=== PATIENT | female | born 1935 | race Asian ===

== ENCOUNTER 2017-01-04 09:27 | Observation (INO) ==
[2017-01-04] MEDS ORDERED: ONDANSETRON 4 MG/2 ML VIAL IV ONE (10:05)
--- NOTE | 2017-01-04 10:05 | Emergency Department Note ---
Lower Extremity Injury HPI - General Chief Complaint: Extremity Injury, Lower Stated Complaint: Right knee and left wrist pain Time Seen by Provider: 01/04/17 09:59 Source: patient Mode of arrival: wheelchair Limitations: physical limitation - History of Present Illness HPI Narrative: This patient fell and injured her left wrist yesterday breaking and also injured her right knee. X-ray of the right knee was negative but she continued to have severe pain in the knee. The pain medication that she had including tramadol is making her sick during the night so she has not been taking it. She is complaining of a lot of pain. - Related Data Home Medications Medication Instructions Recorded Confirmed ascorbic acid (vitamin C) 500 mg 500 mg PO QDAY tab 11/03/14 01/04/17 tablet calcium carbonate 600 mg (1,500 2 tab PO QDAY tab 11/03/14 01/04/17 mg)-vitamin D3 200 unit tablet levothyroxine 25 mcg capsule 50 mcg PO QDAY cap 11/03/14 01/04/17 metformin 500 mg tablet 500 mg PO BID tab 11/03/14 01/04/17 multivitamin tablet 1 tab PO QDAY tab 11/03/14 01/04/17 omeprazole 20 mg capsule,delayed 20 mg PO QDAY cap 11/03/14 01/04/17 release simvastatin 10 mg tablet 10 mg PO QPM tab 11/03/14 01/04/17 cyanocobalamin (vit B-12) 1,000 1,000 mcg PO QDAY 01/01/15 01/04/17 mcg tablet hydroxychloroquine 200 mg tablet 200 mg PO QDAY tab 01/01/15 01/04/17 ketoconazole 2 % topical cream 1 applic TOPICAL .COMPLEX PRN 01/01/15 01/04/17 ondansetron HCl 4 mg tablet 4 mg PO Q6H PRN 01/01/15 01/04/17 triamcinolone acetonide 0.025 % 1 applic TOPICAL .COMPLEX PRN 01/01/15 01/04/17 topical cream cholestyramine (with sugar) 4 gram 4 g PO .COMPLEX 04/15/16 01/04/17 oral powder Previous Rx's Medication Instructions Recorded trospium 20 mg tablet 20 mg PO BID #180 tab 09/02/16 traMADol [Ultram] 50 mg PO Q6HP PRN #20 tab 01/03/17 Allergies Allergy/AdvReac Type Severity Reaction Status Date / Time codeine Allergy Severe Hives & Verified 01/03/17 11:08 [From Tylenol-Codeine #3] Rash hydrocodone [From [place]] Allergy Unknown Unknown Verified 01/03/17 11:08 acetaminophen AdvReac Mild Nausea Verified 01/04/17 09:33 Review of Systems Review of Systems: This patient was a little diaphoretic and so they moved her over to the ER side going EKG which looked normal. All systems ED: reviewed and negative except as stated. Past Medical History - Past Medical History [facility] Narrative: Medical History Wrist fracture (Acute) Vasomotor instability (Chronic) Urinary urgency (Chronic) Hx of urinary tract infection (Chronic) Urinary frequency (Chronic) Pelvic pain (Chronic) Joint pain (Chronic) Gastroesophageal reflux (Chronic) Fatigue (Chronic) Abdominal bruit (Chronic) Dysuria (Chronic) Dysphagia, unspecified (Chronic) Diabetes mellitus, type II (Chronic) Sin's palsy (Chronic) Back pain (Chronic) Atrophic vaginitis (Chronic) Arthritis (Chronic) Abdominal pain (Chronic) codeine [From Tylenol-Codeine #3] Allergy (Severe, Verified 01/03/17 11:08) Hives & Rash hydrocodone [From [place]] Allergy (Unknown, Verified 01/03/17 11:08) Unknown acetaminophen Adverse Reaction (Mild, Verified 01/04/17 09:33) Nausea 01/04/17 10:02 CT knee RT wo con Stat morphine 2 mg IV Q5MIN PRN Temp Pulse Resp BP Pulse Ox 98.5 F 95 H 18 104/65 98 01/04/17 09:28 01/04/17 09:28 01/04/17 09:28 01/04/17 09:28 01/04/17 09:28 Past Surgical History History of hysterectomy (Chronic) History of colonoscopy (Chronic) History of breast surgery (Chronic) Family History Unknown No pertinent family history Medical history: Reports: diabetes, hyperlipidemia, hypertension, other (right iliac artery stenosis) Surgical history ED: Reports: non-contributory Psychiatric history: Reports: no psych history 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 Tenderness is diffuse. - General Limitations: physical limitation General appearance: alert - Head Head exam: atraumatic, normocephalic - Eye Eye exam: Present: normal appearance - ENT ENT exam: normal exam - Neck Neck exam: Present: normal inspection - Chest Chest inspection: Present: normal inspection - Respiratory Respiratory exam: Present: normal lung sounds bilaterally - Cardiovascular Cardiovascular exam: Present: regular rate, normal rhythm, normal heart sounds - Abdominal Exam Abdominal exam: Present: soft. Absent: distention, tenderness - Neurological Exam Neurological exam: Present: alert - Psychiatric Psychiatric exam: Present: normal affect, normal mood - Skin Skin exam: Present: warm, dry, intact Course Vital Signs Temperature 98.5 F 01/04/17 09:28 Pulse Rate 95 H 01/04/17 09:28 Respiratory Rate 18 01/04/17 09:28 Blood Pressure 104/65 01/04/17 09:28 Pulse Oximetry (%) 98 01/04/17 09:28 Temperature 98.5 F 01/04/17 09:28 Pulse Rate 74 01/04/17 11:01 Respiratory Rate 14 01/04/17 11:01 Blood Pressure 149/68 01/04/17 11:01 Pulse Oximetry (%) 99 01/04/17 11:01 Extremity Injury, Lower - MDM Narrative Medical decision making narrative: Right knee shows a posterior avulsion fracture of the tibia where the posterior cruciate ligament attaches. Patient lives alone and is not really manage at home alone with a fractured left wrist and right knee. Discussed the case with Dr. Joyce who will review the films. The left wrist may need to be surgically repaired. We will admit to the hospitalist for pain control - Lab Data Lab results reviewed: Yes I reviewed the patient's lab results. Result diagrams: 01/04/17 10:27 01/04/17 10:27 Lab Results 01/04/17 01/04/17 Range/Units 10:27 10:27 WBC 7.0 (4.5-11.0) K/mcL RBC 4.23 (4.00-5.20) M/mcL Hgb 13.1 (12.0-15.0) g/dL Hct 38.9 (36.0-48.0) % MCV 91.9 (80.0-100.0) fL MCH 31.0 (26.0-34.0) pg MCHC 33.7 (31.0-36.0) g/dL RDW 15.1 H (11.5-14.5) % Plt Count 165 (140-440) K/mcL MPV 8.6 (7.4-10.4) fL Gran % 85.2 H (38.0-78.0) % Lymph % (Auto) 8.9 L (15.5-49.0) % [place] % (Auto) 5.4 (1.0-12.0) % Eos % (Auto) 0.3 (0.0-7.0) % Baso % (Auto) 0.2 (0.0-2.0) % Gran # 6.0 (1.8-8.0) K/mcL Lymph # (Auto) 0.6 L (1.5-4.8) K/mcL [place] # (Auto) 0.4 (0.1-0.9) K/mcL Eos # (Auto) 0 (0.0-0.7) K/mcL Baso # (Auto) 0 (0.0-0.3) K/mcL Sodium 131 L (133-145) mmol/L Potassium 3.7 (3.3-5.1) mmol/L Chloride 92 L (96-108) mmol/L Carbon Dioxide 23 (22-30) mmol/L Anion Gap 16.0 (8-16) BUN 16 (8-23) mg/dl Creatinine 0.7 (0.6-1.1) mg/dl GFR Calculation 81 Glucose 132 H (70-105) mg/dL Calcium 9.7 (8.6-10.4) mg/dl Total Bilirubin 0.6 (0.0-1.0) mg/dL AST 32 (0-37) U/l ALT 21 (0-40) U/l Alkaline Phosphatase 48 (39-117) U/L Total Protein 6.7 (5.9-8.4) gm/dL Albumin 4.3 (3.2-5.2) gm/dL Globulin 2.4 (2.2-3.7) gm/dL Albumin/Globulin Ratio 1.8 (1.0-2.3) - Radiology Data Radiology results reviewed: Yes I reviewed the patient's radiology results. Disposition Pt seen by LAND LAW EXAMINER/PA only: No Clinical Impression: Tibia fracture, Wrist fracture Disposition: Xfer As Outpt/Obs ([facility]) Condition: Good Referrals: Beverley Lux ARNP [Primary Care Provider] - Time of Disposition: 11:46
[2017-01-04] MEDS ORDERED: 0.9 % SODIUM CHLORIDE 1,000 ML IV ONE (10:41)
[2017-01-04 11:06] LABS: Basophils # (Auto) 0 K/mcL (0.0-0.3); Basophils % (Auto) 0.2 % (0.0-2.0); Eosinophils # (Auto) 0 K/mcL (0.0-0.7); Eosinophils % (Auto) 0.3 % (0.0-7.0); Granulocytes % (Auto) 85.2 % (38.0-78.0); Lymphocytes # (Auto) 0.6 K/mcL (1.5-4.8); Lymphocytes % (Auto) 8.9 % (15.5-49.0); Mean Cell Volume 91.9 fL (80.0-100.0); Mean Corpuscular HGB Conc 33.7 g/dL (31.0-36.0); Monocytes # (Auto) 0.4 K/mcL (0.1-0.9); Monocytes % (Auto) 5.4 % (1.0-12.0); Platelet Count 165 K/mcL (140-440); RBC 4.23 M/mcL (4.00-5.20); Red Cell Distribution Width 15.1 % (11.5-14.5)
[2017-01-04 11:33] LABS: ALT/SGPT 21 U/l (0-40); Albumin 4.3 gm/dL (3.2-5.2); Albumin/Globulin Ratio 1.8 (1.0-2.3); Alkaline Phosphatase 48 U/L (39-117); Blood Urea Nitrogen 16 mg/dl (8-23)
[2017-01-04 12:49] LABS: Appearance,Urine CLEAR; Bacteria,Urine 0 /hpf (0); Bilirubin,Urine NEG (NEG); Color,Urine STRAW; Glucose,Urine (UA) NEGATIVE (NEG); Leukocyte Esterase,Urine NEG /uL (NEG); Mucus,Urine FEW /hpf (0); Nitrate,Urine NEG (NEG); Protein,Urine NEG (NEG); Specific Gravity,Urine 1.009 (1.000-1.035); Urine Blood NEG mg/dL (<0.03); Urine RBC 0 /hpf (0-1); Urine Squamous Epithelial Cell 0 /hpf (0-4); Urine WBC < 1 /hpf (0-4); Urobilinogen,Urine NEG (NEG)
--- NOTE | 2017-01-04 13:51 | Internal Med History&Physical ---
Medical - H&P: HPI Patient information: Note initiated : 01/04/17 at 1:49 pm Patient: Rizwan Rueda 81 y/o F admitted on for Right knee ulcer avulsion fracture and left wrist fracture. History of present illness: Ms. Rueda is a 81 year old [place] female, who lives alone. She has been struggling with chronic pain for a while, although the source of her pain is not entirely clear. It sounds like she has chronic bilateral knee pain, and then also hip claudication. She has apparently been seeing Dr. Christy for the claudication. She also has fairly diffuse osteoarthritis. She says she has been falling more frequently lately. Yesterday, she had a curb near the sidewalk and tripped and fell. She was seen in our emergency room yesterday, and diagnosed with a comminuted left distal radius fracture. She was placed in a splint and given oral pain medications, and sent home. Today she returned to the emergency room saying that severe nausea was preventing her from holding the pain meds down. Her pain was uncontrolled. She also is having a lot of pain bearing weight on the right knee. CT scan of the knee did show a posterior a avulsion fracture of the right tibia. The patient required IV morphine to get her pain even moderately controlled in the emergency room, as well as IV antiemetics. She is now admitted for further pain control, and for further evaluation of her fractures. There is a bit of a language barrier, as French is not her first language. Fortunately, her son and [id number] are in the room supplement the history. The patient does have a history also of chronic intermittent nausea, of uncertain etiology. The family is a bit frustrated, as they would like to go to her doctor's appointments with her, so they know what is happening. However, the patient tends to forget to call them when she has appointments. The patient seems to indicate that she was in her normal state of health until yesterday. She denies any recent fevers or chills, headaches or dizziness, new eye or ear symptoms, sore throat or cough chest pain or palpitations. However, she indicated she occasionally has substernal discomfort at night, but it goes away with rubbing. She denies any heart history. She denies abdominal pain, diarrhea. She does have nausea for which she takes Zofran intermittently. She believes she rarely has vomiting. She denies dysuria here, but there are several notes from Dr. Corrales which discuss chronic urinary urgency, frequency, atrophic vaginitis. Screening EKG done in the emergency room was mildly normal, with mild ST elevation noted in leads II 3 and F. We did obtain an EKG from [facility], that also has very slight ST elevation inferiorly, so this is likely a chronic change. Medical History Abdominal bruit (Chronic) Abdominal pain (Chronic) Arthritis (Chronic) Atrophic vaginitis (Chronic) Back pain (Chronic) Sin's palsy (Chronic) Diabetes mellitus, type II (Chronic) Dysphagia, unspecified (Chronic) FEW TIMES A YEAR Dysuria (Chronic) Fatigue (Chronic) Gastroesophageal reflux (Chronic) Hx of urinary tract infection (Chronic) Joint pain (Chronic) Pelvic pain (Chronic) Urinary frequency (Chronic) Urinary urgency (Chronic) Vasomotor instability (Chronic) Records from [facility], from Dr. Christy, indicate the patient has had obturator steroid injections. She apparently also has weakness and numbness of both lower extremities. COPD noted on chest x-ray Surgical History History of breast surgery (Chronic) FAILED BREAST IMPLANTS WITH SCARRING History of colonoscopy (Chronic) History of hysterectomy (Chronic) Medication List ascorbic acid (vitamin C) 500 mg PO QDAY Calcium carbonate plus D, 500, 2 daily cyanocobalamin (vit B-12) 1,000 mcg PO QDAY hydroxychloroquine 200 mg PO QDAY ketoconazole 2% 1 applic TOPICAL PRN levothyroxine 25 mcg PO QDAY metformin 500 mg PO BID multivitamin tablet 1 tab PO QDAY omeprazole 20 mg PO QDAY ondansetron HCl 4 mg PO Q6H PRN simvastatin 10 mg PO QPM triamcinolone acetonide 0.025% 1 applic TOPICAL PRN trospium 20 mg PO BID MiraLAX 17 g p.o. nightly Allergies/Adverse Reactions Codeine [From Tylenol-Codeine #3] Allergy (Severe, Verified 04/15/16 13:20) Hives & Rash codeine [From Tylenol-Codeine #3] Allergy (Severe, Verified 04/15/16 13:20) Hives & Rash hydrocodone [From [place]] Allergy (Unknown, Verified 04/15/16 13:31) Unknown Tylenol? Reaction unknown Family History Mother had significant osteoarthritis. Both parents and 2 brothers all had tuberculosis, while living in [place]. Social History The patient lives alone. Her son and [id number] live here in town. She smoked from the age of 16 until age 74, approximately 1-1/2 packs per day. She does not use alcohol or drugs. Medical - H&P: Meds Home Medications Medication Instructions Recorded Confirmed Type ascorbic acid (vitamin C) 500 mg 500 mg PO 1200 tab 11/03/14 01/04/17 History tablet levothyroxine 25 mcg capsule 50 mcg PO QDAY cap 11/03/14 01/04/17 History metformin 500 mg tablet 500 mg PO BID tab 11/03/14 01/04/17 History omeprazole 20 mg capsule,delayed 20 mg PO BID cap 11/03/14 01/04/17 History release simvastatin 10 mg tablet 10 mg PO QPM tab 11/03/14 01/04/17 History cyanocobalamin (vit B-12) 1,000 1,000 mcg PO 1200 01/01/15 01/04/17 History mcg tablet hydroxychloroquine 200 mg tablet 200 mg PO QDAY tab 01/01/15 01/04/17 History ondansetron HCl 4 mg tablet 4 mg PO Q6H PRN 01/01/15 01/04/17 History triamcinolone acetonide 0.025 % 1 applic TOPICAL PRN PRN 01/01/15 01/04/17 History topical cream trospium 20 mg tablet 20 mg PO BID #180 tab 09/02/16 01/04/17 Rx Calcium Carbonate/Vitamin D3 1,000 mg PO 1200 01/04/17 01/04/17 History [Calcium 500+D Tablet Chew] Folic Acid/Multivit-Min/Lutein 1 tab PO 1200 01/04/17 01/04/17 History [Adult Multivitamin Gummies] Polyethylene Glycol 3350 [Miralax] 17 gm PO HS 01/04/17 01/04/17 History Allergies Allergy/AdvReac Type Severity Reaction Status Date / Time codeine Allergy Severe Hives & Verified 01/03/17 11:08 [From Tylenol-Codeine #3] Rash hydrocodone [From [place]] Allergy Intermediate Hives Verified 01/04/17 15:19 acetaminophen AdvReac Mild Nausea Verified 01/04/17 09:33 Medical - H&P: Exam - Constitutional Vitals: Temp Pulse Resp BP Pulse Ox 98.5 F 80 14 115/58 100 01/04/17 09:28 01/04/17 11:31 01/04/17 13:01 01/04/17 13:01 01/04/17 11:31 On exam, she is an elderly female, in no significant distress. She has a fairly heavy accent, so there is a bit of a language barrier. Her family helps to interpret which she is trying to say. Head: Normocephalic, atraumatic. Eyes: PERRLA, EOMI, anicteric. Ears: TMs and canals are clear. Pharynx: Pharynx is clear. She has a full upper plate. About half her teeth remain in the lower jaw, and are in fair condition. Neck: Is supple, without obvious lymphadenopathy, JVD, thyromegaly, bruits. Cardiac: Shows regular rate and rhythm, with normal S1 and S2, without murmurs, rubs, gallops. Lungs: Are clear to auscultation, without rales, rhonchi, wheezes. Abdomen: Soft and nontender, without obvious masses. Bowel sounds are active. There is no guarding or rebound. Extremities: Left arm and wrist are in a splint and wrapped in an Harris wrap. She is able to move her fingers. She is complaining of continued pain in the wrist area. Right leg is held in an extended position by a knee immobilizer. No cyanosis, clubbing, edema is noted. Pulses appear intact. Neurologic exam: Is grossly nonfocal. Medical - H&P: Reslt - Labs CBC & Chem 7: 01/04/17 10:27 01/04/17 10:27 Labs: Short CBC 01/04/17 Range/Units 10:27 WBC 7.0 (4.5-11.0) K/mcL Hgb 13.1 (12.0-15.0) g/dL Hct 38.9 (36.0-48.0) % Plt Count 165 (140-440) K/mcL BMP 01/04/17 10:27 Sodium 131 L Potassium 3.7 Chloride 92 L Carbon Dioxide 23 BUN 16 Creatinine 0.7 Glucose 132 H Calcium 9.7 Liver Function 01/04/17 Range/Units 10:27 Total Bilirubin 0.6 (0.0-1.0) mg/dL AST 32 (0-37) U/l ALT 21 (0-40) U/l Alkaline Phosphatase 48 (39-117) U/L Albumin 4.3 (3.2-5.2) gm/dL Urine 01/04/17 Range/Units 12:02 Urine Color Straw Urine Appearance Clear Urine pH 8.0 (5.0-9.0) Ur Specific [place] 1.009 (1.000-1.035) Urine Protein Neg (NEG) mg/dL Urine Glucose (UA) Negative (NEG) mg/dL January 04: Right knee CT scan: EKG: Shows normal sinus rhythm at a rate of 75. There is slight ST elevation noted in leads II,3 and F. January 03: Right knee x-ray: Shows medium sized suprapatellar joint effusion. No obvious fracture. Left wrist x-ray: Acute comminuted intra-articular fracture of the distal radius , with the articular surface angulated and mildly displaced. Severe arthritis is also noted. Medical - H&P: A/P (1) Distal radius fracture, left Current visit: Yes Status: Acute (2) Avulsion fracture of lateral condyle of right tibia Current visit: Yes Status: Acute (3) Abnormal EKG Current visit: Yes Status: Acute (4) Nausea & vomiting Current visit: Yes Status: Acute (5) Diabetes mellitus, type II Current visit: No Status: Chronic - Narrative A/P Narrative: #1. Orthopedic. -Comminuted distal radius fracture of the left wrist. Pain is poorly controlled. Patient will be admitted for IV pain meds, as oral pain meds are causing her to vomit. Wrist is splinted. Dr. Novak of orthopedics has been consulted. Physical therapy and occupational therapy evaluations will need to be done as well. -Avulsion fracture of the tibia, causing significant right knee pain. Orthopedic evaluation. Knee immobilizer for now. 2. Uncontrolled pain. Patient is failing oral medications, as she cannot hold them down. Admitted for IV pain and nausea medications. Olivier catheter to avoid pain caused by getting in and out of bed. 3. Cardiac. -EKG from the ER is mildly abnormal. This was repeated, and continues to show mild ST elevation inferiorly. We did retrieve an old EKG from [facility], and although these changes are a little more subtle, it appears they are chronic. Troponin is normal. 4. Endocrine. -Type 2 diabetes. I think I will hold metformin, as this may be contributing to her nausea. Accu-Cheks, and sliding scale insulin coverage. -Hypothyroidism. Continue levothyroxine. 5. CODE STATUS: 6. DVT prophylaxis: Subcu Lovenox. 7. Renal. Patient has mild hyponatremia and hypochloremia. This may be due to nausea and vomiting. Gentle IV fluid hydration. #8. GI. Patient presents with nausea and vomiting, likely related to pain medications. Gentle IV fluids, antiemetics, advance diet as tolerated. -History of GERD. continue omeprazole. 9. . Olivier catheter is placed to avoid the discomfort of getting in and out of bed. Patient also has a history of urinary frequency, urgency, atrophic vaginitis, UTIs. She has seen Dr. Corrales for these, and they have decided on no further treatment. Continue trospium as desired. 10. Hyperlipidemia. Continue simvastatin and cholestyramine. Approximately 60 minutes was spent today reviewing the patient's case with the ER MD, as well as with orthopedics, interviewing and examining the patient, reviewing plan of care with both the patient and her family, and writing orders.
[2017-01-04] MEDS ORDERED: DEXTROSE 50% 50 ML VIAL IV PRN (14:26)
[2017-01-04] MEDS ORDERED: DOCUSATE SODIUM 100 MG CAPSULE PO PRN (14:26)
[2017-01-04] MEDS ORDERED: CALCIUM CARBONATE 500 MG TAB.CHEW CHEWED PRN (14:26)
[2017-01-04] MEDS ORDERED: ALBUTEROL SULFATE 2.5 MG/3 ML NEBULIZER NEB PRN (14:26)
[2017-01-04] MEDS ORDERED: MAGNESIUM HYDROXIDE 30 ML ORAL.SUSP PO PRN (14:26)
[2017-01-04] MEDS ORDERED: NALOXONE HCL 0.4 MG/ML VIAL IV PRN (14:26)
[2017-01-04] MEDS ORDERED: ONDANSETRON 4 MG/2 ML VIAL IV PRN (14:26)
[2017-01-04] MEDS ORDERED: ACETAMINOPHEN 325 MG TABLET PO PRN (14:26)
[2017-01-04] MEDS ORDERED: DEXTROSE 31 GM ORAL.SUSP PO PRN (14:26)
--- NOTE | 2017-01-04 14:57 | Cat Scan Report ---
CLINICAL INFORMATION: Reason fall FINDINGS: There is a wedge-shaped avulsion fracture fragment off the posterior margin of the tibial plateau in the midline. This is at the insertion point of the posterior cruciate ligament. The fragment measures 9 mm. It is rotated and retracted proximally. This was not seen on the prior x-ray done on 01/03/17. No other fracture is present. There is a moderate size joint effusion. Patient has arthritis with chondrocalcinosis in all three joint compartments. The lateral joint compartment between the femur and patella is narrowed. IMPRESSION: Avulsion fracture off of the tibial plateau, where the posterior cruciate ligament inserts. Mona Hurd was called with results Interpreted and Authenticated by: Rajan Saldivar 01/04/17
[2017-01-04] MEDS: INSULIN LISPRO 1 UNIT/0.01 ML UNIT SQ SCH ×2 (16:43→20:54)
[2017-01-04] MEDS: 0.9 % SODIUM CHLORIDE 10 ML SYRINGE IV SCH ×2 (16:45→21:30)
--- NOTE | 2017-01-04 18:34 | Orthopedic Consult Note ---
History of Present Illness - HPI Patient information: Note initiated : 01/04/17 at 6:28 pm Service Date, if different from initiated Date: [] Patient: Rizwan Rueda 81 y/o F admitted on 01/04/17 for Right knee and left wrist pain. Chief Complaint: [right knee PCL avulsion and left distal radius fracture Patient is an 81 YO female who was walking on the side walk yesterday when she slipped and fell. She reports not being able to ambulate right away. She was escorted via ambulance to the hospital. X-rays showed a left mildly displaced distal radius fracture with some radial shortening and mild dorsal angulation. She was placed into a sugar tong splint at admittance. A CT of her right knee showed a posterior intracondylar tibial eminence avulsion at the PCL footprint. She was placed into a knee immobilizer and sent home. She returned to the ER today for nausea and intractable pain. She was admitted today for pain and nausea control. She denies previous bony injury to the left wrist or right lower extremity. Consult date: 01/04/17 Consult reason: fracture Review of Systems All systems PM: reviewed and no additional remarkable complaints except as stated Constitutional: as per HPI Cardiovascular: no chest pain Respiratory: as per HPI Musculoskeletal: as per HPI, no numbness, no tingling Musculoskeletal: left: wrist pain, right: knee pain Neurological: frequent falls, no syncope Medications and Allergies Home Medications Medication Instructions Recorded Confirmed Type ascorbic acid (vitamin C) 500 mg 500 mg PO 1200 tab 11/03/14 01/04/17 History tablet levothyroxine 25 mcg capsule 50 mcg PO QDAY cap 11/03/14 01/04/17 History metformin 500 mg tablet 500 mg PO BID tab 11/03/14 01/04/17 History omeprazole 20 mg capsule,delayed 20 mg PO BID cap 11/03/14 01/04/17 History release simvastatin 10 mg tablet 10 mg PO QPM tab 11/03/14 01/04/17 History cyanocobalamin (vit B-12) 1,000 1,000 mcg PO 1200 01/01/15 01/04/17 History mcg tablet hydroxychloroquine 200 mg tablet 200 mg PO QDAY tab 01/01/15 01/04/17 History ondansetron HCl 4 mg tablet 4 mg PO Q6H PRN 01/01/15 01/04/17 History triamcinolone acetonide 0.025 % 1 applic TOPICAL PRN PRN 01/01/15 01/04/17 History topical cream trospium 20 mg tablet 20 mg PO BID #180 tab 09/02/16 01/04/17 Rx Calcium Carbonate/Vitamin D3 1,000 mg PO 1200 01/04/17 01/04/17 History [Calcium 500+D Tablet Chew] Folic Acid/Multivit-Min/Lutein 1 tab PO 1200 01/04/17 01/04/17 History [Adult Multivitamin Gummies] Polyethylene Glycol 3350 [Miralax] 17 gm PO HS 01/04/17 01/04/17 History Allergies Allergy/AdvReac Type Severity Reaction Status Date / Time codeine Allergy Severe Hives & Verified 01/03/17 11:08 [From Tylenol-Codeine #3] Rash hydrocodone [From [place]] Allergy Intermediate Hives Verified 01/04/17 15:19 acetaminophen AdvReac Mild Nausea Verified 01/04/17 09:33 Physical Examination - Elbow bilateral Location of pain: no pain Stiffness: none Swelling: none Other symptoms OR: none Appearance: none Tenderness with palpation: none Full ROM: yes - Wrist & Hand left Location of pain: dorsal wrist, radial wrist Wrist pain modifiers: with motion Symptoms: wrist swelling Tenderness with palpation: radial wrist, dorsal wrist Tests: median nerve tests: negative, ulnar nerve tests: negative, radial nerve tests: negative, radial artery flow tests: negative, ulnar artery flow tests: negative - Knee right Appearance: normal Effusion grade: trace Tenderness with palpation: posterior, medial Pain: other (with posterior drawer) Stability exam: posterior: grade 1 (posterior sag, posterior drawer) PCL tests: posterior drawer: grade 1, posterior sag: grade 1 Assessment and Plan (1) Avulsion fracture of lateral condyle of right tibia Assessment: Posterior intracondylar eminence avulsion fracture of right tibia Plan: -May WBAT with immobilizer brace in place and use of assistive device as needed. Will have her f/u in clinic after d/c from hospital for PT prescription and protocol instructions. -Non-operative -Pain control Status: Acute (2) Distal radius fracture, left Assessment: mildly displaced left distal radius fracture with slight dorsal angulation Plan: -Non-operative -At discharge, patient will f/u with Dr. Joyce in clinic for a short arm or sugar tong fiberglass cast with dorsal mold with repeat x-rays -NWB in the left extremity -keep splint clean and dry. Move fingers several times per hour -Pain control -F/u at [facility] shortly after discharge for further fracture care Status: Acute Objective Vital Signs Temp Pulse Resp BP BP Pulse Ox 01/04/17 15:57 97.9 F 16 117/64 96 01/04/17 14:05 98.5 F 84 20 121/59 97 01/04/17 13:53 15 01/04/17 13:31 15 116/53 01/04/17 13:01 14 115/58 01/04/17 12:31 18 121/59 01/04/17 12:01 18 134/69 01/04/17 11:31 80 15 136/58 100 01/04/17 11:01 74 14 149/68 99 01/04/17 10:34 73 25 H 136/64 99 01/04/17 10:01 74 23 H 159/65 100 01/04/17 09:48 158/77 01/04/17 09:28 98.5 F 95 H 18 104/65 98 - Intake & Output Intake & Output: Intake & Output 01/04/17 01/04/17 01/04/17 05:59 13:59 21:59 Intake Total 180 / 180 Output Total 900 / 900 Balance -720 / -720 Weight 100 lb 100 lb Intake: Oral 180 / 180 Output: Urine Catheter Amount 900 / 900 Other: Meal Dinner Percent of Meal Consumed 25% - Physical Examination General: Appears Well, No Apparent Distress Neuro: Motor Function Intact, Sensory Function Intact, Grossly Intact Extremities cardiology: Normal Upper Extr. Pulses, Normal Lower Extr. Pulses ( radial, DP/PT 2+ b/l) - Labs and Meds Cardiac Enzymes 01/04/17 Range/Units 10:27 AST 32 (0-37) U/l CBC 01/04/17 Range/Units 10:27 WBC 7.0 (4.5-11.0) K/mcL RBC 4.23 (4.00-5.20) M/mcL Hgb 13.1 (12.0-15.0) g/dL Hct 38.9 (36.0-48.0) % Plt Count 165 (140-440) K/mcL Lymph # (Auto) 0.6 L (1.5-4.8) K/mcL Moody # (Auto) 0.4 (0.1-0.9) K/mcL Eos # (Auto) 0 (0.0-0.7) K/mcL Baso # (Auto) 0 (0.0-0.3) K/mcL Comprehensive Metabolic Panel 01/04/17 Range/Units 10:27 Sodium 131 L (133-145) mmol/L Potassium 3.7 (3.3-5.1) mmol/L Chloride 92 L (96-108) mmol/L Carbon Dioxide 23 (22-30) mmol/L BUN 16 (8-23) mg/dl Creatinine 0.7 (0.6-1.1) mg/dl Glucose 132 H (70-105) mg/dL Calcium 9.7 (8.6-10.4) mg/dl AST 32 (0-37) U/l ALT 21 (0-40) U/l Alkaline Phosphatase 48 (39-117) U/L Total Protein 6.7 (5.9-8.4) gm/dL Albumin 4.3 (3.2-5.2) gm/dL Current Medications Generic Name Dose Route Start Last Admin Trade Name Freq PRN Reason Stop Dose Admin Acetaminophen 650 mg 01/04/17 14:26 Tylenol PO Q6HP PRN PAIN/FEVER > 101 Albuterol Sulfate 2.5 mg 01/04/17 14:26 Ventolin NEB Q2HP PRN Shortness Of Breath Calcium Carbonate/Glycine 1,000 mg 01/04/17 14:26 Tums CHEWED Q4HP PRN Dyspepsia Dextrose 0 ml 01/04/17 14:26 Dextrose 50% IV UD PRN Hypoglycemia Diagnostic Test (Pha) 1 each 01/04/17 17:00 01/04/17 16:43 Accu-Chek FS 1 each ACHS JOSE Administration Docusate Sodium 100 mg 01/04/17 14:26 Colace PO BID PRN Constipation Enoxaparin Sodium 40 mg 01/05/17 09:00 Lovenox SQ DAILY JOSE Glucose 15 gm 01/04/17 14:26 Insta-Glucose PO PRN PRN Hypoglycemia Insulin Human Lispro 0 unit 01/04/17 17:00 01/04/17 16:43 Humalog SQ Not Given ACHS [facility] Protocol Magnesium Hydroxide 30 ml 01/04/17 14:26 Milk Of Magnesia PO DAILYP PRN Constipation Morphine Sulfate 2 - 4 mg 01/04/17 16:04 01/04/17 16:38 Morphine IV 4 mg Q2HP PRN Administration Pain Naloxone HCl 0.1 mg 01/04/17 14:26 Narcan IV Q2MIN PRN Opiate Reversal Ondansetron HCl 4 mg 01/04/17 14:26 01/04/17 18:23 Zofran IV 4 mg Q4-6HP PRN Administration Nausea And Vomiting Sodium Chloride 10 ml 01/04/17 14:26 01/04/17 16:45 Saline Flush IV 10 ml Q8 JOSE Administration Intake and Output 01/04/17 01/04/17 01/04/17 05:59 13:59 21:59 Intake Total 180 / 180 Output Total 900 / 900 Balance -720 / -720 Intake: Oral 180 / 180 Output: Urine Catheter Amount 900 / 900 Other: Meal Dinner Percent of Meal Consumed 25% Weight 100 lb 100 lb Patient Weight 01/05/17 05:59 Weight 100 lb
[2017-01-04] MEDS ORDERED: TRIAMCINOLONE 0.025% TOPICAL PRN (19:31)
[2017-01-04] MEDS: SIMVASTATIN 10 MG TABLET PO SCH (20:49)
[2017-01-04] MEDS: OMEPRAZOLE 20 MG CAPSULE PO SCH (20:49)
[2017-01-04] MEDS: POLYETHYLENE GLYCOL 3350 17 GM PACKET PO SCH (20:49)
[2017-01-04] MEDS: TROSPIUM CHLORIDE 20 MG PO SCH (20:51)
[2017-01-05] MEDS: 0.9 % SODIUM CHLORIDE 10 ML SYRINGE IV SCH ×3 (04:12→20:27)
[2017-01-05 05:26] LABS: ALT/SGPT 18 U/l (0-40); Albumin 3.7 gm/dL (3.2-5.2); Albumin/Globulin Ratio 1.7 (1.0-2.3); Alkaline Phosphatase 41 U/L (39-117); Basophils # (Auto) 0 K/mcL (0.0-0.3); Basophils % (Auto) 0.2 % (0.0-2.0); Bilirubin,Direct < 0.2 mg/dL (0.0-0.3); Blood Urea Nitrogen 10 mg/dl (8-23); Eosinophils # (Auto) 0 K/mcL (0.0-0.7); Eosinophils % (Auto) 0.8 % (0.0-7.0); Gamma Glutamyl Transpeptidase 9 U/L (5-36); Granulocytes % (Auto) 76.8 % (38.0-78.0); Lymphocytes # (Auto) 0.6 K/mcL (1.5-4.8); Lymphocytes % (Auto) 12.2 % (15.5-49.0); Magnesium 1.9 mg/dL (1.6-2.5); Mean Cell Volume 91.2 fL (80.0-100.0); Mean Corpuscular HGB Conc 33.9 g/dL (31.0-36.0); Mean Corpuscular Hemoglobin 30.9 pg (26.0-34.0); Monocytes # (Auto) 0.5 K/mcL (0.1-0.9); Platelet Count 136 K/mcL (140-440); RBC 3.92 M/mcL (4.00-5.20); Red Cell Distribution Width 14.9 % (11.5-14.5); Uric Acid 3.7 mg/dL (2.5-8.0)
[2017-01-05] MEDS: LEVOTHYROXINE 50 MCG TABLET PO SCH (06:47)
[2017-01-05] MEDS: OMEPRAZOLE 20 MG CAPSULE PO SCH ×3 (06:49→20:33)
[2017-01-05] MEDS: INSULIN LISPRO 1 UNIT/0.01 ML UNIT SQ SCH ×4 (06:54→20:45)
[2017-01-05] MEDS ORDERED: morphine 15 MG TABLET PO PRN (07:31)
[2017-01-05] MEDS: ONDANSETRON ODT 4 MG TABLET SL PRN ×4 (08:29→21:11)
[2017-01-05] MEDS ORDERED: ASPIRIN 325 MG ENTERIC COATED TABLET PO SCH (09:00)
[2017-01-05] MEDS: HYDROXYCHLOROQUINE 200 MG TABLET PO SCH (09:03)
[2017-01-05] MEDS: ACETAMINOPHEN 500 MG TABLET PO SCH ×3 (09:04→20:26)
[2017-01-05] MEDS: ENOXAPARIN 40 MG/0.4 ML SYRINGE SQ SCH (09:04)
[2017-01-05] MEDS: TROSPIUM CHLORIDE 20 MG PO SCH ×2 (09:05→20:46)
--- NOTE | 2017-01-05 10:34 | Internal Med Progress Note ---
Medical - PN: Subj Patient information: Note initiated : 01/05/17 at 10:32 am Patient: Rizwan Rueda 81 y/o F admitted on 01/04/17 for Right knee and left wrist pain. Interval history: January 04, 2017: History of present illness: Ms. Rueda is a 81 year old [place] female, who lives alone. She has been struggling with chronic pain for a while, although the source of her pain is not entirely clear. It sounds like she has chronic bilateral knee pain, and then also hip claudication. She has apparently been seeing Dr. Christy for the claudication. She also has fairly diffuse osteoarthritis. She says she has been falling more frequently lately. Yesterday, she had a curb near the sidewalk and tripped and fell. She was seen in our emergency room yesterday, and diagnosed with a comminuted left distal radius fracture. She was placed in a splint and given oral pain medications, and sent home. Today she returned to the emergency room saying that severe nausea was preventing her from holding the pain meds down. Her pain was uncontrolled. She also is having a lot of pain bearing weight on the right knee. CT scan of the knee did show a posterior a avulsion fracture of the right tibia. The patient required IV morphine to get her pain even moderately controlled in the emergency room, as well as IV antiemetics. She is now admitted for further pain control, and for further evaluation of her fractures. There is a bit of a language barrier, as Thai is not her first language. Fortunately, her son and [id number] are in the room supplement the history. The patient does have a history also of chronic intermittent nausea, of uncertain etiology. The family is a bit frustrated, as they would like to go to her doctor's appointments with her, so they know what is happening. However, the patient tends to forget to call them when she has appointments. The patient seems to indicate that she was in her normal state of health until yesterday. She denies any recent fevers or chills, headaches or dizziness, new eye or ear symptoms, sore throat or cough chest pain or palpitations. However, she indicated she occasionally has substernal discomfort at night, but it goes away with rubbing. She denies any heart history. She denies abdominal pain, diarrhea. She does have nausea for which she takes Zofran intermittently. She believes she rarely has vomiting. She denies dysuria here, but there are several notes from Dr. Corrales which discuss chronic urinary urgency, frequency, atrophic vaginitis. Screening EKG done in the emergency room was mildly normal, with mild ST elevation noted in leads II 3 and F. We did obtain an EKG from [facility], that also has very slight ST elevation inferiorly, so this is likely a chronic change. January 05: The patient had better pain control overnight. She received several doses of morphine and Zofran initially, and then 1 more dose around 4:00 this morning. She says her right leg pain has essentially resolved in the immobilizer. However, she continues to have significant left wrist pain and throbbing, which she rates as 8 or 9 out of 10. She has had minimal nausea and no vomiting overnight. She reports she has not had a bowel movement for at least 2 days. She otherwise denies fever or chills, chest pain or palpitations, shortness of breath, abdominal pain, diarrhea. Olivier catheter remains in place given her limited physical abilities. Physical therapy apparently was able to stand her this morning, and have her pivot to a chair. - Constitutional Vitals: Vital Signs Temp Pulse Resp BP Pulse Ox 98.5 F 85 16 120/67 94 01/05/17 06:24 01/05/17 06:57 01/05/17 06:24 01/05/17 06:24 01/05/17 06:57 Period Temp Pulse Resp BP Sys/Vásquez Pulse Ox Last 24 Hr 97.9 F-99.0 F 73-85 14-25 108-149/53-69 94-100 Intake and Output 01/04/17 01/05/17 01/05/17 21:59 05:59 13:59 Intake Total 180 / 180 300 / 300 585 / 585 Output Total 900 / 900 900 / 900 Balance -720 / -720 -600 / -600 585 / 585 Weight 96 lb Intake & Output: Intake & Output 01/04/17 01/05/17 01/05/17 21:59 05:59 13:59 Intake Total 180 / 180 300 / 300 585 / 585 Output Total 900 / 900 900 / 900 Balance -720 / -720 -600 / -600 585 / 585 Weight 96 lb Intake: Oral 180 / 180 300 / 300 585 / 585 Output: Urine Catheter Amount 900 / 900 900 / 900 Other: Meal Dinner Breakfast Percent of Meal Consumed 25% 50% Feeding Ability Assist with Tray Set Up # Bowel Movements 0 On exam, she is awake and alert, and sitting up in a chair. Her daughter-in- law is at the bedside. T-max was 99.0. Other vital signs normal. Next Neck is supple without obvious lymphadenopathy or JVD. Cardiac exam shows regular rate and rhythm. Lungs are clear to auscultation. Abdomen is soft and nontender. Extremities: Right arm and left leg appear normal. Left arm remains in a splint and Harris wrap. Fingers are quite swollen, but she moves them easily. There is good neurovascular refill. Right leg is held in an extended immobilizer. neurologic exam is grossly nonfocal. Medical - PN: Obj Da - Labs CBC & Chem 7: 01/05/17 03:50 01/05/17 03:50 Labs: Abnormal Lab Results 01/05/17 01/04/17 01/04/17 03:50 12:02 10:27 RBC 3.92 L Hct 35.7 L RDW 14.9 H Plt Count 136 L Gran % Lymph % (Auto) 12.2 L Lymph # (Auto) 0.6 L Sodium 131 L Chloride 92 L Glucose 132 H Urine Ketones 5/tr A 01/04/17 10:27 RBC Hct RDW 15.1 H Plt Count Gran % 85.2 H Lymph % (Auto) 8.9 L Lymph # (Auto) 0.6 L Sodium Chloride Glucose Urine Ketones January 04: Right knee CT scan: A avulsion fracture of the tibial plateau, where posterior cruciate ligament inserts. Moderate size joint effusion. Moderate arthritis and chondrocalcinosis EKG: Shows normal sinus rhythm at a rate of 75. There is slight ST elevation noted in leads II,3 and F. January 03: Right knee x-ray: Shows medium sized suprapatellar joint effusion. No obvious fracture. Left wrist x-ray: Acute comminuted intra-articular fracture of the distal radius , with the articular surface angulated and mildly displaced. Severe arthritis is also noted. Urinalysis: Shows 5 ketones, and is otherwise normal. Meds: Medications Acetaminophen (Tylenol) 650 mg PO Q6HP PRN PRN Reason: PAIN/FEVER > 101 Acetaminophen (Tylenol) 500 mg PO TID [facility] Last Admin: 01/05/17 09:04 Dose: 500 mg Albuterol Sulfate (Ventolin) 2.5 mg NEB Q2HP PRN PRN Reason: Shortness Of Breath Ascorbic Acid (Vitamin C) 500 mg PO DAILY@1200 [facility] Aspirin (Ecotrin) 325 mg PO DAILY [facility] Last Admin: 01/05/17 09:04 Dose: 325 mg Calcium Carbonate/Glycine (Tums) 1,000 mg CHEWED Q4HP PRN PRN Reason: Dyspepsia Calcium/Vitamin D (Calcium W/Vit D3) 1,000 mg PO DAILY@1200 [facility] Cyanocobalamin (Vitamin B-12) 1,000 mcg PO DAILY@1200 [facility] Dextrose (Dextrose 50%) 0 ml IV UD PRN PRN Reason: Hypoglycemia Diagnostic Test (Pha) (Accu-Chek) 1 each FS ACHS [facility] Last Admin: 01/05/17 06:53 Dose: 1 each Docusate Sodium (Colace) 100 mg PO BID PRN PRN Reason: Constipation Last Admin: 01/04/17 20:49 Dose: 100 mg Enoxaparin Sodium (Lovenox) 40 mg SQ DAILY [facility] Last Admin: 01/05/17 09:04 Dose: 40 mg Glucose (Insta-Glucose) 15 gm PO PRN PRN PRN Reason: Hypoglycemia Hydroxychloroquine Sulfate (Plaquenil) 200 mg PO QDAY [facility] Last Admin: 01/05/17 09:03 Dose: 200 mg Insulin Human Lispro (Humalog) 0 unit SQ [facility] PRN Reason: Protocol Last Admin: 01/05/17 06:54 Dose: Not Given Iron Carb/Multivit/Rusk/Folic Acid (Multivitamin W/Minerals) 1 tab PO DAILY@ 1200 [facility] Levothyroxine Sodium (Synthroid) 50 mcg PO QAMAC [facility] Last Admin: 01/05/17 06:47 Dose: 50 mcg Magnesium Hydroxide (Milk Of Magnesia) 30 ml PO DAILYP PRN PRN Reason: Constipation Morphine Sulfate (Morphine) 2 - 4 mg IV Q2HP PRN PRN Reason: Pain Last Admin: 01/05/17 04:10 Dose: 2 mg Morphine Sulfate (Morphine) 15 mg PO Q4-6HP PRN PRN Reason: Pain Naloxone HCl (Narcan) 0.1 mg IV Q2MIN PRN PRN Reason: Opiate Reversal Omeprazole (Prilosec) 20 mg PO BID [facility] Last Admin: 01/05/17 09:05 Dose: Not Given Ondansetron HCl (Zofran) 4 mg IV Q4-6HP PRN PRN Reason: Nausea And Vomiting Last Admin: 01/04/17 18:23 Dose: 4 mg Ondansetron HCl (Zofran Odt) 4 mg SL Q4-6HP PRN PRN Reason: Nausea And Vomiting Last Admin: 01/05/17 08:29 Dose: 4 mg Trospium Chloride 20 (Mg Tab) 1 dose PO BID [facility] Last Admin: 01/05/17 09:05 Dose: Not Given Polyethylene Glycol (Miralax) 17 gm PO HS [facility] Last Admin: 01/04/17 20:49 Dose: 17 gm Simvastatin (Zocor) 10 mg PO QPM [facility] Last Admin: 01/04/17 20:49 Dose: 10 mg Sodium Chloride (Saline Flush) 10 ml IV Q8 [facility] Last Admin: 01/05/17 04:12 Dose: 10 ml Triamcinolone Acetonide (Kenalog Crm 0.025%) 1 dose TOPICAL PRN PRN PRN Reason: Rash Medical - PN: A/P - Time Spent With Patient Total time spent is greater than 50% in coordination of care (as documented) at patient's floor/unit and/or counseling patient: 25 - 35 minutes (1) Distal radius fracture, left Status: Acute Current Visit: Yes (2) Avulsion fracture of lateral condyle of right tibia Status: Acute Current Visit: Yes (3) Abnormal EKG Status: Acute Current Visit: Yes (4) Nausea & vomiting Status: Acute Current Visit: Yes (5) Diabetes mellitus, type II Status: Chronic Current Visit: No - Narrative A/P Narrative: #1. Orthopedic. -Comminuted distal radius fracture of the left wrist. Pain is poorly controlled. This patient was admitted for control of pain and nausea with IV medications. Her symptoms have improved nicely overnight. Orthopedics has recommended we continue with current management. See their dictated note. Wrist is splinted. Physical therapy and occupational therapy evaluations will need to be done as well. Because of the patient's pain and fairly chronic instability, she will not be safe to return home alone at this point. Physical therapy is working with her to see what they can accomplish. She will likely need to go to some type of rehab facility, for further efforts at decreasing her fall risk, and getting her pain managed with oral medications. -Avulsion fracture of the tibia, causing significant right knee pain. Knee immobilizer for now. Weightbearing as tolerated. 2. Uncontrolled pain. -Admitted for IV pain and nausea medications. Today I have started her on a regimen of sublingual Zofran, followed 30 minutes later by Tylenol p.o., followed 30 minutes later by oral morphine if needed. Her Metformin is on hold, and that will also help with nausea. This was reviewed with both the patient and her [id number]. -We will try removing the Olivier catheter, to see if she can manage to get in and out of bed and onto a commode. 3. Cardiac. -EKG from the ER is mildly abnormal. This was repeated, and continues to show mild ST elevation inferiorly. We did retrieve an old EKG from [facility], and although these changes are a little more subtle, it appears they are chronic. Troponin was normal. 4. Endocrine. -Type 2 diabetes. Metformin was held. So far, Accu-Cheks are ranging from 76-147. I expect she does not need metformin. Accu-Cheks, and sliding scale insulin coverage. -Hypothyroidism. Continue levothyroxine. 5. CODE STATUS: Full code. 6. DVT prophylaxis: Subcu Lovenox. I am a little concerned about her risk of DVT, as she will likely be quite sedentary. Continue Lovenox for now. If she ends up going home, consider at least a daily aspirin. 7. Renal. Patient had mild hyponatremia and hypochloremia. This may be due to nausea and vomiting. Resolved. #8. GI. Patient presents with nausea and vomiting, likely related to pain medications. Gentle IV fluids, antiemetics, advance diet as tolerated. -History of GERD. continue omeprazole. 9. . Olivier catheter will be removed today, to see if she can manage without it. Patient also has a history of urinary frequency, urgency, atrophic vaginitis, UTIs. She has seen Dr. Corrales for these, and they have decided on no further treatment. Continue trospium as desired. 10. Hyperlipidemia. Continue simvastatin and cholestyramine. Medical - PN: Qual - VTE Deep Vein Thrombosis/Pulmonary Embolism Present on Admission: No
[2017-01-05] MEDS ORDERED: CALCIUM W/VIT D3 500 MG TABLET PO SCH (12:00)
[2017-01-05] MEDS ORDERED: CYANOCOBALAMIN (VITAMIN B-12) 500 MCG TABLET PO SCH (12:00)
[2017-01-05] MEDS ORDERED: MULTIVIT,THER IRON,CA,FA & MIN 1 TABLET PO SCH (12:00)
[2017-01-05] MEDS ORDERED: ASCORBIC ACID 500 MG TABLET PO SCH (12:00)
[2017-01-05] MEDS: SIMVASTATIN 10 MG TABLET PO SCH (20:25)
[2017-01-05] MEDS: POLYETHYLENE GLYCOL 3350 17 GM PACKET PO SCH (20:27)
[2017-01-06 04:40] LABS: Basophils # (Auto) 0 K/mcL (0.0-0.3); Basophils % (Auto) 0.4 % (0.0-2.0); Eosinophils # (Auto) 0 K/mcL (0.0-0.7); Eosinophils % (Auto) 1.1 % (0.0-7.0); Granulocytes % (Auto) 70.7 % (38.0-78.0); Lymphocytes # (Auto) 0.7 K/mcL (1.5-4.8); Lymphocytes % (Auto) 18.7 % (15.5-49.0); Mean Cell Volume 91.3 fL (80.0-100.0); Mean Corpuscular HGB Conc 34.3 g/dL (31.0-36.0); Mean Corpuscular Hemoglobin 31.3 pg (26.0-34.0); Monocytes # (Auto) 0.3 K/mcL (0.1-0.9); Monocytes % (Auto) 9.1 % (1.0-12.0); Platelet Count 138 K/mcL (140-440); RBC 3.73 M/mcL (4.00-5.20); Red Cell Distribution Width 15.2 % (11.5-14.5)
[2017-01-06 04:58] LABS: ALT/SGPT 18 U/l (0-40); Albumin 3.3 gm/dL (3.2-5.2); Albumin/Globulin Ratio 1.3 (1.0-2.3); Alkaline Phosphatase 40 U/L (39-117); Bilirubin,Direct < 0.2 mg/dL (0.0-0.3); Blood Urea Nitrogen 9 mg/dl (8-23); Gamma Glutamyl Transpeptidase 7 U/L (5-36); Magnesium 2.2 mg/dL (1.6-2.5); Uric Acid 3.8 mg/dL (2.5-8.0)
[2017-01-06] MEDS: 0.9 % SODIUM CHLORIDE 10 ML SYRINGE IV SCH (06:26)
[2017-01-06] MEDS: INSULIN LISPRO 1 UNIT/0.01 ML UNIT SQ SCH (06:58)
[2017-01-06] MEDS: OMEPRAZOLE 20 MG CAPSULE PO SCH (07:01)
[2017-01-06] MEDS: LEVOTHYROXINE 50 MCG TABLET PO SCH (07:01)
[2017-01-06] MEDS: ACETAMINOPHEN 500 MG TABLET PO SCH (08:51)
[2017-01-06] MEDS: HYDROXYCHLOROQUINE 200 MG TABLET PO SCH (08:51)
[2017-01-06] MEDS: ENOXAPARIN 40 MG/0.4 ML SYRINGE SQ SCH (08:51)
[2017-01-06] MEDS: TROSPIUM CHLORIDE 20 MG PO SCH (08:52)
--- NOTE | 2017-01-06 09:21 | Discharge Summary ---
Medical - DS: Prov Patient information: Note initiated : 01/06/17 at 9:21 am Patient: Rizwan Rueda 81 y/o F admitted on 01/04/17 for Right knee and left wrist pain. Date of admission: 01/04/17 14:00 Discharge date: 01/06/17 Primary care physician: Beverley Lux, nurse practitioner, phone #[phone] Admitting clinician: Ashley Hurt Consults: 01/04/17 11:45 Consult to Physician [CONS] Stat Comment: Consulting Provider: Pedro Luis Joyce Reason For Exam: Physician to Consult 01/04/17 11:46 Consult to Physician [CONS] Stat Comment: Consulting Provider: Ashley Hurt Reason For Exam: Physician to Consult Attending physician on discharge: Ashley Hurt Medical - DS: Meds - Discharge Medications Prescriptions: morphine 15 mg PO Q4-6HP PRN #10 tab PRN Reason: Pain morphine 2 - 4 mg IV Q2HP PRN #10 syringe PRN Reason: Pain Active and Home Medications: Discharge medications: Tylenol 500 mg p.o. 3 times daily, scheduled, regarding left wrist pain Zofran 4 mg sublingual or IV, prior to any pain medication doses Albuterol nebulizer every 2 hours as needed shortness of breath Vitamin C 500 mg daily Tums 1000 mg every 4 hours as needed Calcium 500 mg plus vitamin D 500 units 1 p.o. twice daily Vitamin B12 1000 mcg daily Colace 100 mg twice daily as needed Lovenox 40 mg subcu daily, until fully ambulatory Hydroxychloroquine 200 mg p.o. daily Humalog sliding scale, low dose, before meals and at bedtime Multivitamin with minerals 1 daily Levothyroxine 50 mcg daily Milk of magnesia 30 mL daily as needed constipation Morphine 15 mg p.o. every 4-6 hours as needed uncontrolled pain Morphine 2-4 mg IV every 2 hours as needed control pain and inability to tolerate oral pain meds Narcan 0.1 mg IV every 2 minutes as needed Omeprazole 20 mg p.o. twice daily MiraLAX 17 g p.o. nightly Zocor 10 mg p.o. nightly Kenalog cream 0.025% topically as needed Trospium 20 mg p.o. twice daily Tylenol 650 mg every 6 hours as needed Metformin held, regarding nausea. Accu-Cheks have been fairly normal, ranging from 76-147 Previous home Medications: ascorbic acid (vitamin C) 500 mg tablet 500 mg PO 1200 tab 11/03/14 [History Confirmed 01/04/17 Last Taken 01/03/17] levothyroxine 25 mcg capsule 50 mcg PO QDAY cap 11/03/14 [History Confirmed 11/13 Last Taken 01/04/17] metformin 500 mg tablet 500 mg PO BID tab 11/03/14 [History Confirmed 01/04/17 Last Taken 01/04/17] omeprazole 20 mg capsule,delayed release 20 mg PO BID cap 11/03/14 [History Confirmed 01/04/17 Last Taken 01/04/17] simvastatin 10 mg tablet 10 mg PO QPM tab 11/03/14 [History Confirmed 01/04/17 Last Taken 01/03/17] cyanocobalamin (vit B-12) 1,000 mcg tablet 1,000 mcg PO 1200 01/01/15 [History Confirmed 01/04/17 Last Taken 01/03/17] hydroxychloroquine 200 mg tablet 200 mg PO QDAY tab 01/01/15 [History Confirmed 01/04/17 Last Taken 01/04/17] ondansetron HCl 4 mg tablet 4 mg PO Q6H PRN 01/01/15 [History Confirmed Last Taken 01/04/17] triamcinolone acetonide 0.025 % topical cream 1 applic TOPICAL PRN PRN 01/01/15 [History Confirmed 01/04/17 Last Taken Unknown] trospium 20 mg tablet 20 mg PO BID #180 tab 09/02/16 [Rx Confirmed 01/04/17 Last Taken 01/04/17] Calcium Carbonate/Vitamin D3 [Calcium 500+D Tablet Chew] 1,000 mg PO 1200 [History Confirmed 01/04/17 Last Taken Unknown] Folic Acid/Multivit-Min/Lutein [Adult Multivitamin Gummies] 1 tab PO 1200 [History Confirmed 01/04/17 Last Taken Unknown] Polyethylene Glycol 3350 [Miralax] 17 gm PO HS 01/04/17 [History Confirmed 01/04 Last Taken Unknown] Medical - DS: Hosp Hospital course: Ms. Rueda is a 81 year old F January 04, 2017: History of present illness: Ms. Rueda is a 81 year old [place] female, who lives alone. She has been struggling with chronic pain for a while, although the source of her pain is not entirely clear. It sounds like she has chronic bilateral knee pain, and then also hip claudication. She has apparently been seeing Dr. Christy for the claudication. She also has fairly diffuse osteoarthritis. She says she has been falling more frequently lately. Yesterday, she had a curb near the sidewalk and tripped and fell. She was seen in our emergency room yesterday, and diagnosed with a comminuted left distal radius fracture. She was placed in a splint and given oral pain medications, and sent home. Today she returned to the emergency room saying that severe nausea was preventing her from holding the pain meds down. Her pain was uncontrolled. She also is having a lot of pain bearing weight on the right knee. CT scan of the knee did show a posterior a avulsion fracture of the right tibia. The patient required IV morphine to get her pain even moderately controlled in the emergency room, as well as IV antiemetics. She is now admitted for further pain control, and for further evaluation of her fractures. There is a bit of a language barrier, as [place] is not her first language. Fortunately, her son and [id number] are in the room supplement the history. The patient does have a history also of chronic intermittent nausea, of uncertain etiology. The family is a bit frustrated, as they would like to go to her doctor's appointments with her, so they know what is happening. However, the patient tends to forget to call them when she has appointments. The patient seems to indicate that she was in her normal state of health until yesterday. She denies any recent fevers or chills, headaches or dizziness, new eye or ear symptoms, sore throat or cough chest pain or palpitations. However, she indicated she occasionally has substernal discomfort at night, but it goes away with rubbing. She denies any heart history. She denies abdominal pain, diarrhea. She does have nausea for which she takes Zofran intermittently. She believes she rarely has vomiting. She denies dysuria here, but there are several notes from Dr. Corrales which discuss chronic urinary urgency, frequency, atrophic vaginitis. Screening EKG done in the emergency room was mildly normal, with mild ST elevation noted in leads II 3 and F. We did obtain an EKG from [facility], that also has very slight ST elevation inferiorly, so this is likely a chronic change. January 05: The patient had better pain control overnight. She received several doses of morphine and Zofran initially, and then 1 more dose around 4:00 this morning. She says her right leg pain has essentially resolved in the immobilizer. However, she continues to have significant left wrist pain and throbbing, which she rates as 8 or 9 out of 10. She has had minimal nausea and no vomiting overnight. She reports she has not had a bowel movement for at least 2 days. She otherwise denies fever or chills, chest pain or palpitations, shortness of breath, abdominal pain, diarrhea. Olivier catheter remains in place given her limited physical abilities. Physical therapy apparently was able to stand her this morning, and have her pivot to a chair. January 06: Hospital course: This patient was admitted with uncontrolled pain, and nausea and vomiting related to oral pain medications, after a fall in which she sustained a comminuted distal radius fracture on the left, and a right posterior knee avulsion fracture. Today, pain is better controlled. She still has nausea after taking Tylenol, but since we started a regimen of Zofran 30 minutes prior to oral Tylenol, she seems to be tolerating it. Nurses feel this is controlling her pain reasonably well. The patient still thinks she might need morphine for better pain control. [place] this morning, she has been up and walk to the bathroom with her specialized walker with the left arm rest. She seemed to do pretty well with that. Physical therapy notes she still needs a lot of work with learning to navigate safely. Otherwise, the patient denies fever or chills, headaches or dizziness, chest pain or shortness of breath, abdominal pain, nausea or vomiting, diarrhea or constipation, dysuria. She is a little anxious about not taking her metformin. On exam, she is awake and alert, and sitting up in bed, having just come back from the bathroom.. Her [id number] is at the bedside. Temperature 96.8, heart rate 76, respiratory rate 22, blood pressure 120/66, O2 saturation 99% on room air. Neck is supple without obvious lymphadenopathy or JVD. Cardiac exam shows regular rate and rhythm. Lungs are clear to auscultation. Abdomen is soft and nontender. Extremities: Right arm and left leg appear normal. Left arm remains in a splint and Harris wrap. Fingers are a little less swollen than yesterday, and she moves them easily. There is good neurovascular refill. Right leg is held in an immobilizer. neurologic exam is grossly nonfocal. Assessment and plan: #1. Orthopedic. -Comminuted distal radius fracture of the left wrist. Pain is poorly controlled. This patient was admitted for control of pain and nausea with IV medications. Her symptoms have improved nicely overnight. Orthopedics has recommended we continue with current management. See their dictated note. Wrist is splinted. Physical therapy and occupational therapy evaluations will need to be done as well. Because of the patient's pain and fairly chronic instability, she will not be safe to return home alone at this point. Patient will need ongoing rehab to decrease her fall risk, regarding both left wrist and right leg pain. -Continue to work on getting her pain managed with oral medications. -Avulsion fracture of the tibia, causing significant right knee pain. Knee immobilizer for now. Weightbearing as tolerated. 2. Uncontrolled pain. -Admitted for IV pain and nausea medications. I have started her on a regimen of sublingual Zofran, followed 30 minutes later by Tylenol p.o., followed 30 minutes later by oral morphine if needed. Her Metformin is on hold, and that will also help with nausea. This was reviewed with both the patient and her [id number]. She seems to be tolerating this reasonably well so far today. -Olivier catheter was removed. She is getting to the bathroom okay. 3. Cardiac. -EKG from the ER is mildly abnormal. This was repeated, and continues to show mild ST elevation inferiorly. We did retrieve an old EKG from [facility], and although these changes are a little more subtle, it appears they are chronic. Troponin was normal. 4. Endocrine. -Type 2 diabetes. Metformin was held. So far, Accu-Cheks are ranging from 76-147. I expect she does not need metformin. Accu-Cheks, and sliding scale insulin coverage. -Hypothyroidism. Continue levothyroxine. 5. CODE STATUS: Full code. 6. DVT prophylaxis: Subcu Lovenox. I am a little concerned about her risk of DVT, as she will likely be quite sedentary. Continue Lovenox for now. If she ends up going home, consider at least a daily aspirin. 7. Renal. Patient had mild hyponatremia and hypochloremia. This may be due to nausea and vomiting. Resolved. #8. GI. Nausea persists, but vomiting has resolved. -History of GERD. continue omeprazole. 9. . Olivier catheter will be removed today, to see if she can manage without it. Patient also has a history of urinary frequency, urgency, atrophic vaginitis, UTIs. She has seen Dr. Corrales for these, and they have decided on no further treatment. Continue trospium as desired. 10. Hyperlipidemia. Continue simvastatin and cholestyramine. Approximately 35 minutes was spent today, interviewing and examining the patient , reviewing plan of care with both staff as well as with the patient and her [id number], and writing orders. From orthopedics: (1) Avulsion fracture of right tibia Assessment: Posterior intracondylar eminence avulsion fracture of right tibia Plan: -May WBAT with immobilizer brace in place and use of assistive device as needed. Will have her f/u in clinic after d/c from hospital for PT prescription and protocol instructions. -Non-operative -Pain control Status: Acute (2) Distal radius fracture, left Assessment: mildly displaced left distal radius fracture with slight dorsal angulation Plan: -Non-operative -At discharge, patient will f/u with Dr. Joyce in clinic for a short arm or sugar tong fiberglass cast with dorsal mold with repeat x-rays -NWB in the left extremity -keep splint clean and dry. Move fingers several times per hour -Pain control -F/u at [facility] shortly after discharge for further fracture care Status: Acute Discharge diagnosis: Comminuted left distal radius fracture. Right knee a avulsion fracture. N/V - Time Spent with Patient Total time spent providing and/or coordinating discharge services: Greater than 30 minutes Medical - DS: Exam - Constitutional Vitals: Vital Signs Temp Pulse Pulse Resp BP Pulse Ox 01/06/17 07:31 96.8 F L 22 120/66 99 01/06/17 07:11 77 98 01/06/17 04:00 98.1 F 74 22 132/67 97 01/05/17 23:37 98.4 F 70 22 138/65 97 01/05/17 19:52 97.9 F 83 24 H 130/68 96 01/05/17 15:25 97.4 F 16 113/68 97 01/05/17 11:36 98.6 F 82 18 133/65 96 Intake and Output 01/05/17 01/06/17 01/06/17 21:59 05:59 13:59 Intake Total 820 / 820 250 / 250 480 / 480 Output Total 675 / 675 Balance 145 / 145 250 / 250 480 / 480 Intake: Oral 820 / 820 250 / 250 480 / 480 Output: Void Amount 675 / 675 Other: Meal Breakfast Percent of Meal Consumed 25% Feeding Ability Assist with Tray Set Up # Voids 1 1 1 # Bowel Movements 1 Weight 97 lb Medical - DS: Data Labs on day of discharge: Labs from last 24 hours 01/06/17 01/06/17 03:48 03:48 WBC 3.7 L RBC 3.73 L Hgb 11.7 L Hct 34.1 L MCV 91.3 MCH 31.3 MCHC 34.3 RDW 15.2 H Plt Count 138 L MPV 8.1 Gran % 70.7 Lymph % (Auto) 18.7 Rabun % (Auto) 9.1 Eos % (Auto) 1.1 Baso % (Auto) 0.4 Gran # 2.6 Lymph # (Auto) 0.7 L Rabun # (Auto) 0.3 Eos # (Auto) 0 Baso # (Auto) 0 Sodium 137 Potassium 3.8 Chloride 99 Carbon Dioxide 28 Anion Gap 10.0 BUN 9 Creatinine 0.8 GFR Calculation 69 Glucose 111 H Uric Acid 3.8 Calcium 9.0 Phosphorus 2.9 Magnesium 2.2 Total Bilirubin 0.4 Direct Bilirubin < 0.2 GGT 7 AST 22 ALT 18 Alkaline Phosphatase 40 Lactate Dehydrogenase 193 Total Protein 5.8 L Albumin 3.3 Globulin 2.5 Albumin/Globulin Ratio 1.3 Triglycerides 54 January 04: Right knee CT scan: A avulsion fracture of the tibial plateau, where posterior cruciate ligament inserts. Moderate size joint effusion. Moderate arthritis and chondrocalcinosis EKG: Shows normal sinus rhythm at a rate of 75. There is slight ST elevation noted in leads II,3 and F. January 03: Right knee x-ray: Shows medium sized suprapatellar joint effusion. No obvious fracture. Left wrist x-ray: Acute comminuted intra-articular fracture of the distal radius , with the articular surface angulated and mildly displaced. Severe arthritis is also noted. Urinalysis: Shows 5 ketones, and is otherwise normal. Medical - DS: A/P - Patient/Caregiver Discharge Instructions Activity: as per physical therapy Diet: Consistent Carbohydrate Prescriptions: morphine 15 mg PO Q4-6HP PRN #10 tab PRN Reason: Pain morphine 2 - 4 mg IV Q2HP PRN #10 syringe PRN Reason: Pain Other Amb Orders: Aspiration Precautions Location: Determined By Patient Fall Risk Location: Determined By Patient OT Discharge Order Location: Determined By Patient Physical Therapy at Discharge - General Location: Determined By Patient Walker Location: Determined By Patient - Problem Maintenance (1) Distal radius fracture, left Status: Acute Qualifiers: Encounter type: initial encounter Fracture type: closed (2) Avulsion fracture of lateral condyle of right tibia Status: Acute Qualifiers: Encounter type: initial encounter Fracture type: closed Qualified Code(s) : S82.121A - Displaced fracture of lateral condyle of right tibia, initial encounter for closed fracture (3) Abnormal EKG Status: Chronic (4) Nausea & vomiting Status: Acute Qualifiers: Vomiting Intractability: non-intractable (5) Diabetes mellitus, type II Status: Chronic Qualifiers: Diabetes mellitus complication status: without complication - Follow up Plan Follow up with: Beverley Lux ARNP [Primary Care Provider] - Disposition: Xfer Inpatient Rehab Fac Prognosis: Good Rehab Potential: Good I certify that the patient requires SNF services: Yes Overall status at discharge: patient is progressing back to baseline Medical - DS: Qual - VTE Deep Vein Thrombosis/Pulmonary Embolism Present on Admission: No
[2017-01-06] MEDS: ONDANSETRON ODT 4 MG TABLET SL PRN (10:08)
== END 2017-01-06 11:20 ==
LOC: ED 09:27 → MEDSUR 13:58 → INTOOBSV 14:00
PROVIDERS: ADMIT Internal Medicine; ATTEND Internal Medicine

== ENCOUNTER 2023-07-23 14:16 | Inpatient (IN) ==
[2023-07-23] MEDS: 0.9 % SODIUM CHLORIDE 1,000 ML IV ONE (16:40)
[2023-07-23 17:13] LABS: Appearance,Urine Clear (Clear); Bilirubin,Urine Negative (Negative); Color,Urine Yellow; Culture Indicated,Urine No; Glucose,Urine (UA) Negative (Negative); Ketones,Urine 80 mg/dL (Negative); Leukocyte Esterase,Urine Negative /uL (Negative); Nitrate,Urine Negative (Negative); Protein,Urine Negative (Negative); Specific Gravity,Urine 1.015 (1.000-1.035); Urine Blood Negative ery/mcL (Negative); Urobilinogen,Urine Normal
[2023-07-23 17:14] LABS: Basophils # (Auto) 0.03 K/mcL (0.00-0.30); Basophils % (Auto) 0.5 % (0.0-2.0); Eosinophils # (Auto) 0.01 K/mcL (0.00-0.70); Eosinophils % (Auto) 0.2 % (0.0-7.0); Hematocrit 41.8 % (34.1-44.9); Lymphocytes # (Auto) 0.54 K/mcL (1.50-4.80); Lymphocytes % (Auto) 8.2 % (15.5-49.0); Mean Cell Volume 92.9 fL (80.0-100.0); Mean Corpuscular HGB Conc 33.5 g/dL (31.0-36.0); Mean Platelet Volume 9.4 fL (8.8-12.5); Monocytes # (Auto) 0.32 K/mcL (0.10-0.90); Monocytes % (Auto) 4.9 % (1.0-12.0); Platelet Count 169 K/mcL (140-440); Red Cell Distribution Width 12.3 % (11.5-14.5); WBC 6.6 K/mcL (4.5-11.0)
[2023-07-23 17:41] LABS: ALT/SGPT 21 U/L (<40); AST/SGOT 39 U/L (<32); Albumin 4.4 gm/dL (3.2-5.2); Albumin/Globulin Ratio 1.8 (1.0-2.3); Alkaline Phosphatase 47 U/L (39-117); Bilirubin,Total 0.8 mg/dL (0.1-1.0); Blood Urea Nitrogen 13 mg/dL (8-23); Calcium 9.8 mg/dL (8.6-10.4); Carbon Dioxide 22 mmol/L (22-30); Chloride 87 mmol/L (96-108); Creatine Kinase 149 U/L (24-170); Globulin 2.4 gm/dL (2.2-3.7); Glomerular Filtration Rate 65; Glucose 108 mg/dL (70-105); Thyroid Stimulating Hormone 2.28 uIU/mL (0.27-5.01)
[2023-07-23 17:43] LABS: Prothrombin Time 13.4 sec (11.9-14.5)
[2023-07-23] MEDS: HYDROcodone/APAP 5/325MG TABLET PO ONE (18:46)
[2023-07-23] MEDS ORDERED: IPRATROPIUM/ALBUTEROL 3 ML AMPUL.NEB NEB PRN (22:22)
[2023-07-23] MEDS: 0.9 % SODIUM CHLORIDE 10 ML SYRINGE IV SCH (22:40)
[2023-07-23] MEDS: LIDOCAINE 4% TOP PATCH TOPICAL SCH (23:37)
[2023-07-23] MEDS: traZODone HCL 50 MG TABLET ONE (23:50)
[2023-07-24] MEDS: traZODone HCL 50 MG TABLET PO PRN (00:18)
[2023-07-24] MEDS: SODIUM CHLORIDE 1 GM TABLET PO SCH (00:19)
[2023-07-24 07:05] LABS: Blood Urea Nitrogen 12 mg/dL (8-23); Calcium 8.9 mg/dL (8.6-10.4); Carbon Dioxide 22 mmol/L (22-30); Chloride 97 mmol/L (96-108); Glomerular Filtration Rate 77; Glucose 75 mg/dL (70-105)
[2023-07-24] MEDS: ACETAMINOPHEN 325 MG TABLET PO PRN (08:29)
[2023-07-24] MEDS: DOCUSATE SODIUM 100 MG CAPSULE PO SCH (08:29)
[2023-07-24] MEDS ORDERED: ONDANSETRON 4 MG/2 ML VIAL IV PRN (11:21)
[2023-07-24] MEDS: 0.9 % SODIUM CHLORIDE 10 ML SYRINGE IV SCH (15:32)
[2023-07-24] MEDS: SENNOSIDES 1 TABLET PO SCH (21:00)
[2023-07-24] MEDS ORDERED: DOCUSATE SODIUM 100 MG CAPSULE PO SCH (21:00)
[2023-07-24] MEDS ORDERED: SENNOSIDES 1 TABLET PO SCH (21:00)
[2023-07-24] MEDS: morphine 4 MG/ML VIAL IV PRN (23:46)
[2023-07-25] MEDS: ONDANSETRON 4 MG/2 ML VIAL IV PRN (01:04)
[2023-07-25 07:58] LABS: Blood Urea Nitrogen 13 mg/dL (8-23); Carbon Dioxide 28 mmol/L (22-30); Chloride 95 mmol/L (96-108); Glomerular Filtration Rate 81; Glucose 157 mg/dL (70-105)
[2023-07-25] MEDS ORDERED: CHLORTHALIDONE 25 MG TABLET PO PRN (12:14)
[2023-07-25] MEDS ORDERED: CELECOXIB 100 MG PO PRN (12:27)
[2023-07-25] MEDS ORDERED: DICLOFENAC SODIUM TOPICAL PRN (12:28)
[2023-07-25] MEDS ORDERED: HYDROcodone/APAP 5/325MG TABLET PO PRN (13:36)
[2023-07-25] MEDS: ONDANSETRON 4 MG ODT TABLET SL PRN (14:56)
[2023-07-25] MEDS: traZODone HCL 50 MG TABLET PO PRN (21:08)
[2023-07-25] MEDS: METOPROLOL SUCCINATE 25 MG TAB.XL.24H PO SCH (21:08)
[2023-07-25] MEDS: SIMVASTATIN 10 MG TABLET PO SCH (21:08)
[2023-07-26 07:14] LABS: Blood Urea Nitrogen 13 mg/dL (8-23); Calcium 9.4 mg/dL (8.6-10.4); Carbon Dioxide 28 mmol/L (22-30); Chloride 97 mmol/L (96-108); Glomerular Filtration Rate 77; Glucose 121 mg/dL (70-105)
[2023-07-26] MEDS: PANTOPRAZOLE 40 MG TABLET PO SCH (08:24)
[2023-07-26] MEDS: CALCIUM W/VIT D3 500 MG TABLET PO SCH (08:24)
[2023-07-26] MEDS: ASPIRIN 81 MG TAB.CHEW PO SCH (08:24)
[2023-07-26] MEDS: LEVOTHYROXINE 50 MCG TABLET PO SCH (08:24)
[2023-07-26] MEDS: CYANOCOBALAMIN (VITAMIN B-12) 500 MCG TABLET PO SCH (08:24)
[2023-07-26] MEDS: MILNACIPRAN 12.5 MG PO SCH (08:25)
[2023-07-26] MEDS: MULTIVIT,THER IRON,CA,FA & MIN 1 TABLET PO SCH (08:25)
[2023-07-26] MEDS: BACLOFEN 10 MG TABLET PO PRN (20:43)
[2023-07-27 07:42] LABS: Blood Urea Nitrogen 12 mg/dL (8-23); Carbon Dioxide 26 mmol/L (22-30); Chloride 98 mmol/L (96-108); Glomerular Filtration Rate 77; Glucose 139 mg/dL (70-105)
== END 2023-07-27 11:41 | DRG 641 ==
LOC: MEDSUR 14:16 → ED 14:16 → MEDSUR 22:17
PROVIDERS: ADMIT Internal Medicine; ATTEND Internal Medicine